=== PATIENT | female | born 1990 ===

== ENCOUNTER 2021-06-07 14:06 | Emergency (ER) | payer SELFPAY | END 2021-06-07 14:25 | disposition left against medical advice (07) | LOC: DL.ED 14:06 | DX: U07.1 COVID-19 (principal) ==

== ENCOUNTER 2021-06-09 11:00 | Emergency (ER) | payer SELFPAY ==
[2021-06-09] MEDS ORDERED: Ondansetron 4 MG/2 ML SDV IVPUSH ONE (11:34)
[2021-06-09] MEDS ORDERED: Acetaminophen 500 MG Tab PO ONE (11:34)
[2021-06-09 12:14] LABS: ANION GAP 18.1 mEq/L (7-13); CHLORIDE,CL 101 mmol/L (98-107); SODIUM,NA 138 mmol/L (136-145)
[2021-06-09] MEDS ORDERED: Dextrose 5%-0.9% NaCl 500 ML IV SCH (12:30)
[2021-06-09] MEDS ORDERED: Metoclopramide 10 MG/2 ML SDV IVPUSH ONE (12:37)
[2021-06-09] MEDS ORDERED: GI Cocktail Oral Solution 30 ML PO ONE (12:41)
[2021-06-09 13:06] LABS: AMPHETAMINES,URINE NEGATIVE (NEGATIVE); BARBITURATES,URINE NEGATIVE (NEGATIVE); BENZODIAZEPINE,URINE NEGATIVE (NEGATIVE); MDMA (ECSTASY), URINE NEGATIVE (NEGATIVE); METHADONE,URINE NEGATIVE (NEGATIVE); METHAMPHETAMINES,URINE NEGATIVE (NEGATIVE); OPIATES,URINE NEGATIVE (NEGATIVE); OXYCODONE,URINE NEGATIVE (NEGATIVE); PHENCYCLIDINE,URINE NEGATIVE (NEGATIVE); TCA,URINE NEGATIVE (NEGATIVE)
[2021-06-09] MEDS ORDERED: metroNIDAZOLE/Normal Saline 500 MG in Premix Bag 100 BAG IV ONE (13:22)
== END 2021-06-09 15:00 | disposition home or self-care (01) ==
LOC: DL.ED 11:00
DX: U07.1 COVID-19 (principal); N76.0 Acute vaginitis; B96.89 Other specified bacterial agents as the cause of diseases classified elsewhere
CPT/HCPCS: 36415; 80053; 80305; 81001; 81025; 82150; 82947; 83690; 83735; 85025; 86140; 96365; 96375; 99284; A9270; J2405; J2765; J3490; J7042

== ENCOUNTER 2024-12-08 13:36 | Observation (INO) | payer BC, MEDICAID ==
[2024-12-08 14:06] LABS: BASOPHILS PERCENT AUTO 0.1 % (0.0-1.0); EOSINOPHILS PERCENT AUTO 0.0 % (1.0-3.0); LYMPHOCYTES PERCENT AUTO 5.1 % (20.5-50.1); MONOCYTES PERCENT AUTO 1.2 % (2-8); NEUTROPHILS PERCENT AUTO 93.6 % (42.2-75.2); PLATELET COUNT,PLT 230 10^3/uL (150-450); RED BLOOD CELL COUNT 4.62 10^6/uL (4.2-5.4); WHITE BLOOD CELL COUNT,WBC 15.3 10^3/uL (5.0-10.0)
[2024-12-08] MEDS: Sodium Chloride 0.9% 10 ML Syringe FLUSH PRN (14:06)
[2024-12-08] MEDS: Ondansetron 4 MG/2 ML SDV IVPUSH ONE (14:06)
[2024-12-08 14:26] LABS: A/G RATIO 1.2; ALANINE AMINOTRANSFERASE,ALT 15 U/L (14-59); ASPARTATE AMNIOTRANSFERASE,AST 13 U/L (15-37); BILIRUBIN TOTAL 0.6 mg/dL (0.2-1.0); BLOOD UREA NITROGEN,BUN 13 mg/dL (7-18); CARBON DIOXIDE,CO2 23 mmol/L (21-32); CHLORIDE,CL 106 mmol/L (98-107); CREATININE 1.03 mg/dL (0.55-1.02); EST CRCL DRUG DOSING (CG) 61.44 mL/min; ESTIMATED GFR 74 mL/min (>=60); GLUCOSE RANDOM 102 mg/dL (70-99); POTASSIUM,K 3.7 mmol/L (3.5-5.1); PROTEIN TOTAL,TP 7.6 g/dL (6.4-8.2); SODIUM,NA 141 mmol/L (136-145)
[2024-12-08] MEDS: Iopamidol 612 MG/ML 100 ML Bottle IVPUSH ONE (14:29)
[2024-12-08 14:31] LABS: APPEARANCE,URINE CLEAR (CLEAR); GLUCOSE,URINE NEGATIVE (NEGATIVE); OCCULT BLOOD,URINE TRACE-INTACT (NEGATIVE)
[2024-12-08 14:33] LABS: AMPHETAMINES,URINE NEGATIVE (NEGATIVE); BARBITURATES,URINE NEGATIVE (NEGATIVE); MDMA (ECSTASY), URINE NEGATIVE (NEGATIVE); METHAMPHETAMINES,URINE NEGATIVE (NEGATIVE); OPIATES,URINE NEGATIVE (NEGATIVE); OXYCODONE,URINE NEGATIVE (NEGATIVE); PHENCYCLIDINE,URINE NEGATIVE (NEGATIVE); TCA,URINE NEGATIVE (NEGATIVE)
[2024-12-08 14:43] LABS: EPITHELIAL CELLS,URINE FEW /HPF (NOT SEEN)
[2024-12-08 16:22] LABS: LACTIC ACID 0.9 mmol/L (0.4-2.0)
[2024-12-08] MEDS ORDERED: Sennosides/Docusate Sodium 50-8.6 MG Tab PO PRN (17:07)
[2024-12-09 05:57] LABS: BASOPHILS PERCENT AUTO 0.2 % (0.0-1.0); EOSINOPHILS PERCENT AUTO 0.4 % (1.0-3.0); LYMPHOCYTES PERCENT AUTO 27.6 % (20.5-50.1); MONOCYTES PERCENT AUTO 5.9 % (2-8); NEUTROPHILS PERCENT AUTO 65.9 % (42.2-75.2); PLATELET COUNT,PLT 186 10^3/uL (150-450); RED BLOOD CELL COUNT 3.87 10^6/uL (4.2-5.4); WHITE BLOOD CELL COUNT,WBC 9.6 10^3/uL (5.0-10.0)
[2024-12-09 06:13] LABS: INR 1.1 (0.9-1.2); PTT,PARTIAL THROMBOPLSTIN TIME 25.1 SEC (22.0-34.0)
[2024-12-09 06:19] LABS: ALANINE AMINOTRANSFERASE,ALT 11.0 U/L (14-59); ASPARTATE AMNIOTRANSFERASE,AST 13.0 U/L (15-37); BILIRUBIN TOTAL 0.3 mg/dL (0.2-1.0); BLOOD UREA NITROGEN,BUN 10.0 mg/dL (7-18); CARBON DIOXIDE,CO2 26.0 mmol/L (21-32); CHLORIDE,CL 110.0 mmol/L (98-107); CREATININE 0.89 mg/dL (0.55-1.02); EST CRCL DRUG DOSING (CG) 71.11 mL/min; GLUCOSE RANDOM 101.0 mg/dL (70-99); POTASSIUM,K 4.0 mmol/L (3.5-5.1); PROTEIN TOTAL,TP 5.6 g/dL (6.4-8.2); SODIUM,NA 142.0 mmol/L (136-145)
[2024-12-09 06:22] LABS: A/G RATIO 1.33; ESTIMATED GFR 88.0 mL/min (>=60)
[2024-12-09] MEDS: Ondansetron 4 MG/2 ML SDV IVPUSH PRN (07:46)
[2024-12-09] MEDS: Formoterol/Mometasone 100-5 MCG 8.8 GM Inhaler INH SCH (08:50)
[2024-12-09] MEDS: HYDROXYCHLOROQUINE PO ONE (12:23)
[2024-12-10 06:24] LABS: BASOPHILS PERCENT AUTO 0.3 % (0.0-1.0); EOSINOPHILS PERCENT AUTO 0.5 % (1.0-3.0); LYMPHOCYTES PERCENT AUTO 34.3 % (20.5-50.1); MONOCYTES PERCENT AUTO 7.2 % (2-8); NEUTROPHILS PERCENT AUTO 57.7 % (42.2-75.2); PLATELET COUNT,PLT 169 10^3/uL (150-450); RED BLOOD CELL COUNT 3.79 10^6/uL (4.2-5.4); WHITE BLOOD CELL COUNT,WBC 6.5 10^3/uL (5.0-10.0)
[2024-12-10 06:45] LABS: ALANINE AMINOTRANSFERASE,ALT 12.0 U/L (14-59); ASPARTATE AMNIOTRANSFERASE,AST 11.0 U/L (15-37); BILIRUBIN TOTAL 0.2 mg/dL (0.2-1.0); BLOOD UREA NITROGEN,BUN 4.0 mg/dL (7-18); CARBON DIOXIDE,CO2 28.0 mmol/L (21-32); CHLORIDE,CL 109.0 mmol/L (98-107); CREATININE 0.78 mg/dL (0.55-1.02); EST CRCL DRUG DOSING (CG) 81.14 mL/min; GLUCOSE RANDOM 87.0 mg/dL (70-99); POTASSIUM,K 4.0 mmol/L (3.5-5.1); PROTEIN TOTAL,TP 5.4 g/dL (6.4-8.2); SODIUM,NA 143.0 mmol/L (136-145)
[2024-12-10 06:47] LABS: A/G RATIO 1.25; ESTIMATED GFR 103.0 mL/min (>=60)
[2024-12-10] MEDS: HYDROXYCHLOROQUINE PO SCH (09:07)
[2024-12-10] MEDS: PREDNISONE PO SCH (09:08)
[2024-12-10] MEDS: Ketorolac 30 MG/ML SDV IVPUSH PRN (13:26)
[2024-12-10] MEDS: GI Cocktail Oral Solution 30 ML PO ONE (13:27)
[2024-12-11 06:22] LABS: BASOPHILS PERCENT AUTO 0.2 % (0.0-1.0); EOSINOPHILS PERCENT AUTO 0.2 % (1.0-3.0); LYMPHOCYTES PERCENT AUTO 18.0 % (20.5-50.1); MONOCYTES PERCENT AUTO 6.4 % (2-8); NEUTROPHILS PERCENT AUTO 75.2 % (42.2-75.2); PLATELET COUNT,PLT 174 10^3/uL (150-450); RED BLOOD CELL COUNT 3.96 10^6/uL (4.2-5.4); WHITE BLOOD CELL COUNT,WBC 12.1 10^3/uL (5.0-10.0)
[2024-12-11 06:43] LABS: ALANINE AMINOTRANSFERASE,ALT 14.0 U/L (14-59); ASPARTATE AMNIOTRANSFERASE,AST 12.0 U/L (15-37); BILIRUBIN TOTAL 0.3 mg/dL (0.2-1.0); BLOOD UREA NITROGEN,BUN 8.0 mg/dL (7-18); CARBON DIOXIDE,CO2 28.0 mmol/L (21-32); CHLORIDE,CL 108.0 mmol/L (98-107); CREATININE 0.8 mg/dL (0.55-1.02); EST CRCL DRUG DOSING (CG) 79.11 mL/min; GLUCOSE RANDOM 84.0 mg/dL (70-99); POTASSIUM,K 3.9 mmol/L (3.5-5.1); PROTEIN TOTAL,TP 5.9 g/dL (6.4-8.2); SODIUM,NA 143.0 mmol/L (136-145)
[2024-12-11 06:45] LABS: A/G RATIO 1.27; ESTIMATED GFR 100.0 mL/min (>=60)
[2024-12-11 10:25] LABS: APPEARANCE,URINE CLEAR (CLEAR); GLUCOSE,URINE NEGATIVE (NEGATIVE); OCCULT BLOOD,URINE NEGATIVE (NEGATIVE)
[2024-12-11 10:53] LABS: EPITHELIAL CELLS,URINE MODERATE /HPF (NOT SEEN)
[2024-12-11] MEDS: D5 1/2 NS w/ 20 mEq/L KCl 1,000 ML IV SCH (12:23)
[2024-12-11] MEDS: Ciprofloxacin in D5W 400 MG in Premix Bag 1 BAG IV ONE (12:39)
[2024-12-11] MEDS: Ciprofloxacin in D5W 400 MG in Premix Bag 1 BAG IV SCH (21:02)
[2024-12-12 06:12] LABS: BASOPHILS PERCENT AUTO 0.1 % (0.0-1.0); EOSINOPHILS PERCENT AUTO 0.4 % (1.0-3.0); LYMPHOCYTES PERCENT AUTO 29.2 % (20.5-50.1); MONOCYTES PERCENT AUTO 6.6 % (2-8); NEUTROPHILS PERCENT AUTO 63.7 % (42.2-75.2); PLATELET COUNT,PLT 164 10^3/uL (150-450); RED BLOOD CELL COUNT 3.81 10^6/uL (4.2-5.4); WHITE BLOOD CELL COUNT,WBC 8.2 10^3/uL (5.0-10.0)
== END 2024-12-13 11:10 | disposition home or self-care (01) ==
LOC: DL.ED 13:36 → DL.MS 16:25 → DL.ED 16:36
PROVIDERS: ADMIT Student in an Organized Health Care Education/Training Program; ATTEND Internal Medicine
DX: N12 Tubulo-interstitial nephritis, not specified as acute or chronic (principal); N39.0 Urinary tract infection, site not specified; J45.909 Unspecified asthma, uncomplicated; K21.9 Gastro-esophageal reflux disease without esophagitis; F41.9 Anxiety disorder, unspecified; R51.9 Headache, unspecified; D64.9 Anemia, unspecified; K59.00 Constipation, unspecified; Z88.8 Allergy status to other drugs, medicaments and biological substances; Z91.09 Other allergy status, other than to drugs and biological substances; Z79.899 Other long term (current) drug therapy
CPT/HCPCS: 36415; 51798; 74177; 80053; 80305; 81001; 81025; 83605; 83690; 83735; 85025; 85610; 85730; 86140; 87040; 93005; 94664; A9270; J0696; J0744; J1885; J2405; J2470; J2765; J3480; J7030; J7042; Q0169; Q9967; 96361; 96365; 96366; 96374; 96375; 96376; 99223; 99232; 99239; 99285-25; G0378; J1171